=== PATIENT | female | born 1945 | race American Indian/Alaskan Native ===

== ENCOUNTER 2017-10-14 12:30 | Outpatient (CLI) | payer MEDICARE ==
--- NOTE | 2017-10-14 13:16 | XRay Report ---
RIGHT HIP RADIOGRAPHS INDICATION: Right hip pain. COMPARISON: None similar at this institution. FINDINGS: An AP pelvic radiograph with frog-leg projection of the right hip demonstrate intact articulation. Imaged bilateral SI and hip joints appear intact. Nonobstructive bowel gas pattern. Right hemipelvic phleboliths. Possible osteopenia. CONCLUSION: No acute radiographic abnormality with age-appropriate degenerative changes. Thank you for the opportunity to participate in this patient's care.
== END 2017-10-14 12:31 | disposition home or self-care (01) ==
LOC: SPVIMAG 12:30
PROVIDERS: ATTEND Orthopaedic Surgery
DX: M16.11 Unilateral primary osteoarthritis, right hip (principal); I87.8 Other specified disorders of veins

== ENCOUNTER 2018-02-13 18:18 | Emergency (ER) | payer MEDICARE ==
[2018-02-13 19:17] LABS: Basophils % (Auto) 0.2 % (0.0-1.8); Eosinophils # (Auto) 0.2 K/mm3 (0.0-0.4); Eosinophils % (Auto) 1.6 % (0.0-4.3); Hematocrit 39.9 % (30.3-42.9); Hemoglobin 13.3 gm/dl (10.1-14.3); Lymphocytes # (Auto) 2.7 K/mm3 (1.2-5.4); Lymphocytes % (Auto) 29.2 % (13.4-35.0); Mean Corpuscular HGB Conc 33 % (30-34); Mean Corpuscular Hemoglobin 28 pg (28-32); Mean Corpuscular Volume 83 fl (79-97); Monocytes # (Auto) 0.6 K/mm3 (0.0-0.8); Platelet Count 263 K/mm3 (140-440); Red Blood Count 4.81 M/mm3 (3.65-5.03); Red Cell Distribution Width 15.1 % (13.2-15.2)
[2018-02-13 19:20] LABS: Bacteria,Urine 4+ /HPF (Negative); Bilirubin,Urine NEG (Negative); Blood,Urine NEG (Negative); Color,Urine Yellow (Yellow); Mucus,Urine 2+ /HPF; Urobilinogen,Urine < 2.0 mg/dL (<2.0)
[2018-02-13 19:39] LABS: Alanine Aminotransferase 9 units/L (7-56); Albumin 4.6 g/dL (3.9-5); BUN/Creatinine Ratio 19; Blood Urea Nitrogen 13 mg/dL (7-17); Calcium 9.1 mg/dL (8.4-10.2); Hemolysis Index 3; Lipase 28 units/L (13-60)
[2018-02-13] MEDS ORDERED: PEPCID IV ONE (20:48)
[2018-02-13] MEDS ORDERED: LIDOCAINE VISCOUS 2% PO ONE (20:48)
[2018-02-13] MEDS ORDERED: ALUM-MAG HYDROX-SIMETH 200-200-20MG/5ML PO ONE (20:48)
[2018-02-13] MEDS ORDERED: NITRO-BID 2% TP ONE (20:49)
--- NOTE | 2018-02-13 20:53 | Emergency Department Report ---
HPI - General Chief Complaint: Abdominal Pain Time Seen by Provider: 02/13/18 20:37 - HPI HPI: Room 9 The patient is a 72-year-old female presenting with a chief complaint of epigastric/substernal pain. The patient states this morning at 03:00 she developed a burning pain in the midepigastric region. The patient states shortly after she developed a substernal and midepigastric pressure has been intermittent. The patient states her symptoms are associated with nausea but denies vomiting. Patient denies shortness of breath or diaphoresis. Patient states she was constipated for the past 2-3 days but today has had 3 formed bowel movements. The patient states 3 weeks ago she had a similar episode of pain but it only lasted 6-8 hours and then resolved. The patient states her last stress test a about 5 years ago. The patient states she's never had a cardiac catheterization Location: [See above] Duration: [See above] Quality: [See above] Severity: [See above] Modifying factors: [see above] Context: [see above] Mode of transportation: [not driving] ED Past Medical Hx - Past Medical History Previous Medical History?: Yes Hx Hypertension: Yes Additional medical history: Fibromyalgia, bursitis, Right hip pain, digestion problems, anxiety, and panic - Surgical History Past Surgical History?: No Additional Surgical History: L shoulder - Family History Family history: no significant - Social History Smoking Status: Former Smoker (none since 1979) Substance Use Type: Alcohol ED Review of Systems ROS: Stated complaint: ABDOMINAL PAIN Other details as noted in HPI Constitutional: denies: diaphoresis, fever Respiratory: denies: shortness of breath Cardiovascular: chest pain Gastrointestinal: abdominal pain, nausea, constipation. denies: vomiting, diarrhea Physical Exam - Physical Exam Vital Signs: Vital Signs 02/13/18 02/13/18 02/13/18 18:32 19:40 19:45 Temperature 99 F Pulse Rate 88 66 63 Respiratory 16 13 10 L Rate Blood Pressure 149/75 133/64 O2 Sat by Pulse 97 Oximetry 02/13/18 02/13/18 02/13/18 20:00 20:04 20:15 Temperature Pulse Rate 65 62 Respiratory 10 L 9 L Rate Blood Pressure 119/49 128/50 O2 Sat by Pulse 98 Oximetry 02/13/18 20:30 Temperature Pulse Rate 64 Respiratory 8 L Rate Blood Pressure 122/47 O2 Sat by Pulse Oximetry Physical Exam: GENERAL: The patient is well-developed well-nourished female lying on stretcher not appearing to be in acute distress. [] HEENT: Normocephalic. Atraumatic. Extraocular motions are intact. Patient has moist mucous membranes. NECK: Supple. Trachea midline CHEST/LUNGS: Clear to auscultation. There is no respiratory distress noted. HEART/CARDIOVASCULAR: Regular. There is no tachycardia. There is no gallop rub or murmur. ABDOMEN: Abdomen is soft, nontender. Patient has normal bowel sounds. There is no abdominal distention. SKIN: There is no rash. There is no edema. There is no diaphoresis. NEURO: The patient is awake, alert, and oriented. The patient is cooperative. The patient has normal speech MUSCULOSKELETAL: There is no evidence of acute injury. ED Course Vital Signs 02/13/18 02/13/18 02/13/18 18:32 19:40 19:45 Temperature 99 F Pulse Rate 88 66 63 Respiratory 16 13 10 L Rate Blood Pressure 149/75 133/64 O2 Sat by Pulse 97 Oximetry 02/13/18 02/13/18 02/13/18 20:00 20:04 20:15 Temperature Pulse Rate 65 62 Respiratory 10 L 9 L Rate Blood Pressure 119/49 128/50 O2 Sat by Pulse 98 Oximetry 02/13/18 20:30 Temperature Pulse Rate 64 Respiratory 8 L Rate Blood Pressure 122/47 O2 Sat by Pulse Oximetry ED Medical Decision Making - Lab Data Result diagrams: 02/13/18 18:50 02/13/18 18:50 Laboratory Tests 02/13/18 02/13/18 02/13/18 18:50 18:50 19:05 WBC 9.4 RBC 4.81 Hgb 13.3 Hct 39.9 MCV 83 MCH 28 MCHC 33 RDW 15.1 Plt Count 263 Lymph % (Auto) 29.2 [place] % (Auto) 6.0 Eos % (Auto) 1.6 Baso % (Auto) 0.2 Lymph # 2.7 Marion # 0.6 Eos # 0.2 Baso # 0.0 Seg Neutrophils % 63.0 Seg Neutrophils # 5.9 Sodium 139 Potassium 3.7 Chloride 99.4 Carbon Dioxide 27 Anion Gap 16 BUN 13 Creatinine 0.7 Estimated GFR > 60 BUN/Creatinine Ratio 19 Glucose 103 H Calcium 9.1 Total Bilirubin 0.20 AST 15 ALT 9 Alkaline Phosphatase 62 Total Creatine Kinase CK-MB (CK-2) CK-MB (CK-2) Rel Index Troponin T Total Protein 7.6 Albumin 4.6 Albumin/Globulin Ratio 1.5 Lipase 28 Urine Color Yellow Urine Turbidity Clear Urine pH 6.0 Ur Specific [place] 1.018 Urine Protein 30 mg/dl Urine Glucose (UA) Neg Urine Ketones Neg Urine Blood Neg Urine Nitrite Neg Urine Bilirubin Neg Urine Urobilinogen < 2.0 Ur Leukocyte Esterase Mod Urine WBC (Auto) 28.0 H Urine RBC (Auto) 5.0 U Epithel Cells (Auto) 6.0 Urine Bacteria (Auto) 4+ Urine Mucus 2+ 02/13/18 20:48 WBC RBC Hgb Hct MCV MCH MCHC RDW Plt Count Lymph % (Auto) [place] % (Auto) Eos % (Auto) Baso % (Auto) Lymph # Marion # Eos # Baso # Seg Neutrophils % Seg Neutrophils # Sodium Potassium Chloride Carbon Dioxide Anion Gap BUN Creatinine Estimated GFR BUN/Creatinine Ratio Glucose Calcium Total Bilirubin AST ALT Alkaline Phosphatase Total Creatine Kinase 80 CK-MB (CK-2) 1.7 CK-MB (CK-2) Rel Index 2.1 Troponin T < 0.010 Total Protein Albumin Albumin/Globulin Ratio Lipase Urine Color Urine Turbidity Urine pH Ur Specific [place] Urine Protein Urine Glucose (UA) Urine Ketones Urine Blood Urine Nitrite Urine Bilirubin Urine Urobilinogen Ur Leukocyte Esterase Urine WBC (Auto) Urine RBC (Auto) U Epithel Cells (Auto) Urine Bacteria (Auto) Urine Mucus - EKG Data -: EKG Interpreted by Me EKG shows normal: sinus rhythm Rate: normal - EKG Data When compared to previous EKG there are: previous EKG unavailable Interpretation: nonspecific ST-T wave tyrell (T-wave Inversion in lead 3) - Radiology Data Radiology results: image reviewed (chest x-ray) interpreted by me: Chest x-ray-no focal infiltrates, no pneumothorax - Differential Diagnosis ACS, GERD, pericarditis, pancreatitis, peptic ulcer disease Critical care attestation.: If time is entered above; I have spent that time in minutes in the direct care of this critically ill patient, excluding procedure time. ED Disposition Clinical Impression: Chest pressure, Epigastric pain Disposition: OP ADMIT IP TO THIS HOSP Is pt being admited?: Yes Does the pt Need Aspirin: Yes Condition: Fair Instructions: Abdominal Pain (ED) Referrals: GUILLERMINA ALLISON MD [Primary Care Provider] - 3-5 Days Time of Disposition: 21:30 (hospitalist paged (Dr. Nilda Ramirez))
[2018-02-13] MEDS ORDERED: ASPIRIN PO ONE (20:54)
[2018-02-13 21:06] LABS: Creatine Kinase MB 1.7 ng/mL (0.0-4.0)
--- NOTE | 2018-02-13 23:08 | XRay Report ---
FINAL REPORT PROCEDURE: XR CHEST 1V AP TECHNIQUE: Chest radiograph anteroposterior view. CPT 89345 HISTORY: chest pain COMPARISON: No prior studies are available for comparison. FINDINGS: Heart: Normal. Mediastinum/Vessels: Normal. Lungs/Pleural space: Normal. Bony thorax: No acute osseous abnormality. Life support devices: None. IMPRESSION: No acute cardiopulmonary abnormality.
[2018-02-13 23:52] VITALS: BP 132/70
== END 2018-02-13 23:52 | disposition left against medical advice (07) ==
LOC: ED 18:18
DX: R10.13 Epigastric pain (principal); I10 Essential (primary) hypertension; Z87.891 Personal history of nicotine dependence
CPT/HCPCS: 36415; 71045; 80053; 81001; 82550; 82553; 83690; 84484; 85025; 93005; 93010; 96374; 99285